=== PATIENT | male | born 2000 | race Caucasian/White ===

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

== ENCOUNTER 2021-10-28 19:01 | Emergency (ER) | payer BC | END 2021-10-28 20:35 | disposition left against medical advice (07) | LOC: ER 19:01 | DX: F41.0 Panic disorder [episodic paroxysmal anxiety] (principal); Z53.21 Procedure and treatment not carried out due to patient leaving prior to being seen by health care provider ==